=== PATIENT | male | born 1965 | race Caucasian/White ===

== ENCOUNTER 2025-06-08 16:51 | Emergency (ER) | payer BC, SELFPAY ==
--- NOTE | ~2025-06-08 | XR_ITS ---
EXAMINATION: XR finger 3rd RT min 2V, 06/08/2025 17:07 STATISTICAL GENETICIST HISTORY: hit distal 3RD finger with rubber mallet COMPARISON: No comparisons available. Findings: No acute fracture or malalignment. No significant degenerative changes. Soft tissues unremarkable. Impression: No acute fracture or malalignment. Reviewed, dictated and finalized at location P. ISTICAL GENETICIST Impression: No acute fracture or malalignment.
[2025-06-08 17:07] VITALS: BP 156/92; PULSE 98; RESP 20; TEMP 36.8; O2SAT 96
--- NOTE | 2025-06-08 17:07 | ED.UPPEXIN ---
HPI - Extremity Injury (Upper) General Chief Complaint: Extremity Injury, Upper Stated Complaint: Injured Finger Time Seen by Provider: 06/08/25 16:52 Source: patient Mode of arrival: ambulatory Limitations: no limitations History of Present Illness HPI narrative: Marlo is a 60-year-old male patient presenting to the clinic today with complaints of right middle finger injury. Reports he was at work and was holding a beam in a another employee struck the distal tip of his finger. Has redness and swelling with pain to the right distal middle finger with bruising. Related Data Allergies Allergy/AdvReac Type Severity Reaction Status Date / Time No Known Allergies Allergy Verified 06/08/25 17:05 Review of Systems Review of Systems: Pertinent positives per HPI. Patient denies any fever, chills, rash, headache, visual changes, dizziness, cough, runny nose, sore throat, shortness of breath, chest pain, palpitations, nausea, vomiting, diarrhea, constipation, abdominal pain, or any urinary issues. PMFSH Comments At the time of my signature, I reviewed and agree with the nursing past medical, surgical, social, and family history. There is no relevant family history pertinent to the patient complaint. Exam Narrative: General: Well-developed, well nourished, in no apparent distress Head: Normocephalic, atraumatic. Cardio: Regular rate and rhythm, s1 and s2 normal, no murmur appreciated. Resp: Clear to auscultation bilaterally, no rhonchi, rales, wheezing or rubs. Musculoskeletal: No deformity, redness, bruising, and swelling to the distal right 3rd finger, tender to palpation, grossly normal range of motion, muscle strength strong and equal, peripheral pulse strong, no edema, no cyanosis, normal gait and station Course Course Emergency Course: Portions of this record may have been created with voice recognition software. Level of Care: Express Care Visit Vital Signs Vital signs: Vital Signs Temperature 36.8 C 06/08/25 17:07 Pulse Rate 98 06/08/25 17:07 Respiratory Rate 20 06/08/25 17:07 Blood Pressure 156/92 H 06/08/25 17:07 Pulse Oximetry 96 06/08/25 17:07 Temperature 36.8 C 06/08/25 17:07 Pulse Rate 98 06/08/25 17:07 Respiratory Rate 20 06/08/25 17:07 Blood Pressure 156/92 H 06/08/25 17:07 Pulse Oximetry 96 06/08/25 17:07 Vital signs reviewed MDM - Extremity Injury (Upper) MDM Narrative Medical decision making narrative: At the time of visit patient is resting comfortably on the exam table. Patient appears to be nontoxic. complaints of right middle finger injury. Reports he was at work and was holding a beam in a another employee struck the distal tip of his finger. Has redness and swelling with pain to the right distal middle finger with bruising. X-ray of the right 3rd finger was ordered Diagnostics: X-ray of the right 3rd finger was performed and was negative for any sign of fracture or malalignment. Plan: I suspect patient has a right middle finger contusion. Will give a metal finger splint. May wear finger splint when working. Supportive measures were discussed with the patient and they voiced understanding discharge instructions and agrees to treatment plan. Return precautions reviewed Differential Diagnosis Differential diagnosis: Likely finger sprain, dislocation of finger and other (Tuft fracture, soft tissue injury, contusion) Imaging Data Radiologist's impression: ITS Impressions Finger X-Ray 06/08/25 17:41 Impression: No acute fracture or malalignment. Discharge Plan Discharge Clinical Impression: Contusion of finger Qualifiers: Encounter type: initial encounter Finger: middle finger Damage to nail status: without damage Laterality: right Qualified Code(s): S60.031A - Contusion of right middle finger without damage to nail, initial encounter Patient Disposition: Home Condition: Stable Instructions: Antibiotic Form, Contusion in Adults (ED) Additional Instructions: X-rays negative for any sign of fracture or malalignment. Rest, ice, elevate, and wear metal finger splint as discussed Tylenol/motrin for pain as discussed. Follow up with your PCP if symptoms persist more than 1 week. Patient Language: Swedish Follow-up/Referrals: PHYSICIAN,FIBRE TECHNOLOGIST [Primary Care Provider, Internal Medicine] Time of Disposition: 17:48 Quality NIHSS Nursing Documentation ED NIHSS nursing documentation: reviewed/agree
--- NOTE | 2025-06-08 18:11 | PC.NURSE ---
1740- care assumed of pt from pavan fletcher, pt sitting quietly in room and knows we are still awaiting official reading from radiologist, verbalized understanding, no new c/o at present.
== END 2025-06-08 17:50 | disposition home or self-care (01) ==
PROVIDERS: Emergency Provider Nurse Practitioner Family
DX: S60.031A Contusion of right middle finger without damage to nail, initial encounter (principal); W50.0XXA Accidental hit or strike by another person, initial encounter; Y99.0 Civilian activity done for income or pay; M35.00 Sjogren syndrome, unspecified
CPT/HCPCS: 29130; 73140; 99203; G0463